=== PATIENT | male | born 1965 | race Caucasian/White ===

== ENCOUNTER 2022-09-05 18:26 | Emergency (ER) | payer OTHER ==
[2022-09-05 19:06] VITALS: BP 138/74; PULSE 100; RESP 18; TEMP 99; BMI 26.6
[2022-09-05 21:22] LABS: EPI CELLS 4 /uL (0-25.1); HYALINE CASTS 2 /uL (0-3.1); URINE APPEARANCE CLEAR; URINE BACTERIA 4 /uL (0-1359); URINE BILIRUBIN NEGATIVE (NEGATIVE); URINE COLOR DK YELLOW; URINE GLUCOSE (UA) NEGATIVE (NEGATIVE); URINE KETONE TRACE (NEGATIVE); URINE LEUK ESTERASE NEGATIVE (NEGATIVE); URINE NITRITE NEGATIVE (NEGATIVE); URINE PROTEIN 1+ (NEGATIVE); URINE RBC 42 /uL (0-23.9); URINE WBC 6 /uL (0-25.8)
== END 2022-09-06 00:15 | disposition home or self-care (01) ==
LOC: JER 18:26 → JERFT 18:26
DX: R10.2 Pelvic and perineal pain (principal)
CPT/HCPCS: 76856-TC; 81003; 87077; 87086; 99284-25